=== PATIENT | female | born 1960 | race Caucasian/White ===

== ENCOUNTER → 2017-06-22 | Outpatient (CLI) | payer OTHER ==
[2017-06-22 15:56] LABS: ARTERIAL BLOOD BASE EXCESS 2.3 mmol/L
== END ==
LOC: OD 15:06
PROVIDERS: ATTEND Internal Medicine Pulmonary Disease
DX: E66.2 Morbid (severe) obesity with alveolar hypoventilation (principal); R06.00 Dyspnea, unspecified
CPT/HCPCS: 36600; 82803

== ENCOUNTER 2017-06-27 16:42 | Inpatient (IN) | payer OTHER ==
[2017-06-27] MEDS ORDERED: ASPIRIN 81 MG TABLET, CHEWABLE PO ONE (17:20)
--- NOTE | 2017-06-27 17:21 | ER Document Report ---
ED Medical Screen (RME) - General Chief Complaint: Chest Pain > 30 Stated Complaint: SHORTNESS OF BREATH Time Seen by Provider: 06/27/17 17:14 Mode of Arrival: Ambulatory Information source: Patient TRAVEL OUTSIDE OF THE [place] IN LAST 30 DAYS: No - HPI Patient complains to provider of: Chest pain, shortness of breath Onset: Last week Onset/Duration: Gradual, Persistent Quality of pain: Achy, Pressure Severity: Moderate Pain Level: 3 Associated Symptoms: Nausea, Shortness of breath Notes: 06/27/17 17:20 Patient is a 56-year-old female with a history of COPD from secondhand smoke exposure, who is oxygen dependent, presents to the emergency room today complaining of chest pain with shortness of breath that has been worsening over the past week, no fevers, nonproductive cough - Related Data Allergies/Adverse Reactions: No Known Allergies Allergy (Verified 06/27/17 16:59) Past Medical History - Past Medical History Cardiac Medical History: Reports: Hx Hypertension Denies: Hx Coronary Artery Disease, Hx Heart Attack Pulmonary Medical History: Denies: Hx Asthma, Hx Bronchitis, Hx COPD, Hx Pneumonia Neurological Medical History: Denies: Hx Cerebrovascular Accident, Hx Seizures Endocrine Medical History: Reports: Hx Diabetes Mellitus Type 2 Renal/ Medical History: Denies: Hx Peritoneal Dialysis GI Medical History: Reports: Hx Gastroesophageal Reflux Disease Musculoskeltal Medical History: Reports Hx Arthritis Psychiatric Medical History: Past Surgical History: Reports: Hx Abdominal Surgery - hernia repair, Hx Section, Hx Orthopedic Surgery. Denies: Hx Hysterectomy, Hx Pacemaker - Immunizations Immunizations up to date: Yes Hx Diphtheria, Pertussis, Tetanus Vaccination: Yes Physical Exam - Vital signs Vitals: Temp Pulse Resp BP Pulse Ox 98.9 F 91 16 131/84 H 94 06/27/17 16:55 06/27/17 16:55 06/27/17 16:55 06/27/17 16:55 06/27/17 16:55 Course - Vital Signs Vital signs: Temp Pulse Resp BP Pulse Ox 98.9 F 91 16 131/84 H 94 06/27/17 16:55 06/27/17 16:55 06/27/17 16:55 06/27/17 16:55 06/27/17 16:55
--- NOTE | 2017-06-27 17:55 | ER Document Report ---
ED General - General Mode of Arrival: Ambulatory Information source: Patient TRAVEL OUTSIDE OF THE [place] IN LAST 30 DAYS: No <MELY BOOTHE - Last Filed: 06/27/17 19:29> <BELINDA ISLAS - Last Filed: 06/28/17 00:40> - General Chief Complaint: Chest Pain > 30 Stated Complaint: SHORTNESS OF BREATH Time Seen by Provider: 06/27/17 17:14 Notes: Patient is a 56-year-old female presented emergency department for shortness of breath 1 week. Patient states that her shortness of breath worsened last night. Patient has chest pain when she tries to take a deep breath. Patient states that she normally has a productive cough in the morning with brown, green , and white sputum. Patient states that today her sputum was very dark in color compared to normal. Patient states her pain is located in her lungs and in between her shoulder blades. Patient denies any fever. Patient states that she also has some abdominal pain and since 06/18/2017 the patient has had some increased discomfort after eating. Patient has a history of COPD due to secondhand smoke exposure. Patient is O2 dependent and normally has an oxygen saturation of 96 or 97 on 2 L. Patient also has a history of pulmonary hypertension, GERD, and type [address] Lew as her PCP and Dr. Perez for pulmonology. (MELY BOOTHE) - Related Data Allergies/Adverse Reactions: No Known Allergies Allergy (Verified 06/27/17 16:59) Home Medications: Current Home Medications Albuterol Sulfate [Proair HFA] 2 inh IN Q6 PRN 06/27/17 [History] Amitriptyline HCl 2 tab PO QHS 06/27/17 [History] Cholecalciferol (Vitd3)/Vit K2 [D3 + K2 Dots 1,000 Units Tab] 1 tab PO DAILY 10/13 [History] Lisinopril/Hydrochlorothiazide [Lisinopril-Hctz 20-12.5 mg Tab] 1 tab PO DAILY 06/27/17 [History] Pioglitazone HCl 30 mg PO DAILY 06/27/17 [History] Past Medical History - General Information source: Patient - Social History Smoking Status: Never Smoker Cigarette use (# per day): No Chew tobacco use (# tins/day): No Smoking Education Provided: No Frequency of alcohol use: None Drug Abuse: None Family History: Hypertension Patient has suicidal ideation: No Patient has homicidal ideation: No - Past Medical History Cardiac Medical History: Reports: Hx Hypertension Pulmonary Medical History: Reports: Hx COPD - Secondhand smoke exposure, Other - O2 dependent Endocrine Medical History: Reports: Hx Diabetes Mellitus Type 2 GI Medical History: Reports: Hx Gastroesophageal Reflux Disease Musculoskeltal Medical History: Reports Hx Arthritis Psychiatric Medical History: Past Surgical History: Reports: Hx Abdominal Surgery - hernia repair, Hx Section, Hx Cholecystectomy, Hx Orthopedic Surgery - Immunizations Immunizations up to date: Yes Hx Diphtheria, Pertussis, Tetanus Vaccination: Yes <MELY BOOTHE - Last Filed: 06/27/17 19:29> - Social History Lives with: Family EENT Medical History: Reports: None Endocrine Medical History: Reports: Hx Diabetes Mellitus Type 2 - Levemir and Humalog and pioglitazone and metformin Renal/ Medical History: Reports: None Psychiatric Medical History: Reports: None Past Surgical History: Reports: Hx Cholecystectomy - April 2013 <BELINDA ISLAS - Last Filed: 06/28/17 00:40> Review of Systems - Review of Systems Constitutional: No symptoms reported EENT: No symptoms reported Cardiovascular: See HPI, Chest pain Respiratory: See HPI, Cough, Short of breath, Sputum Gastrointestinal: No symptoms reported Genitourinary: No symptoms reported Female Genitourinary: No symptoms reported Musculoskeletal: No symptoms reported Skin: No symptoms reported Hematologic/Lymphatic: No symptoms reported Neurological/Psychological: No symptoms reported -: Yes All other systems reviewed and negative <MELY BOOTHE - Last Filed: 06/27/17 19:29> Physical Exam - Vital signs Interpretation: Normal <MELY BOOTHE - Last Filed: 06/27/17 19:29> <BELINDA ISLAS - Last Filed: 06/28/17 00:40> - Vital signs Vitals: Temp Pulse Resp BP Pulse Ox 98.9 F 91 16 131/84 H 94 06/27/17 16:55 06/27/17 16:55 06/27/17 16:55 06/27/17 16:55 06/27/17 16:55 - Notes Notes: GENERAL: Alert, interacts well. Mild distress. HEAD: Normocephalic, atraumatic. EYES: Appear normal. Pupils equal, round, and reactive to light. ENT: Moist mucus membranes, tongue midline. NECK: Full range of motion. Supple. Trachea midline. LUNGS: Clear to auscultation bilaterally while listening anteriorly, no wheezes , rales, or rhonchi. 98% oxygen saturation on 2 L nasal cannula which is patient 's baseline. No respiratory distress. HEART: Regular rate and rhythm. No murmurs, gallops, or rubs. ABDOMEN: Morbidly obese. Soft, tenderness to palpate the epigastric and right upper quadrant. Non-distended. Normal bowel sounds. EXTREMITIES: Moves all 4 extremities spontaneously. Normal strength. No peripheral edema. NEUROLOGICAL: Alert and oriented x3. Normal speech. No focal neurological deficits. GCS 15. PSYCH: Normal affect, normal mood. SKIN: Warm, dry, normal turgor. (MELY BOOTHE) Course - Laboratory Result Diagrams: 06/27/17 18:00 06/27/17 18:00 <MELY BOOTHE - Last Filed: 06/27/17 19:29> - Laboratory Result Diagrams: 06/27/17 18:00 06/27/17 18:00 - Diagnostic Test Radiology reviewed: Image reviewed, Reports reviewed - Patient is status post cholecystectomy. The pancreas was not well visualized due to patient's obesity. IV contrast CT scan shows mild inflammatory changes in the pancreas, no masses no fluid collections. There is no ductal dilatation. There is fatty liver. There is periportal adenopathy. There is a left adnexal mass which is been present and essentially unchanged since at least 2011. - EKG Interpretation by Me EKG shows normal: Sinus rhythm, Silva, Intervals, QRS Complexes, ST-T Waves Rate: Normal - 86 Rhythm: NSR - Consults Dr. Thapa Time consulted: 22:20 Consulted provider: other - Requests I get a CT scan of the abdomen to better evaluate the pancreas and try to exclude the possibility that this could be due to an old retained stone. Dr. Thapa was called again with the CT results at 0035 and is agreeable to admit the patient to a medical floor <BELINDA ISLAS - Last Filed: 06/28/17 00:40> - Vital Signs Vital signs: Temp Pulse Resp BP Pulse Ox 98.9 F 91 26 H 116/83 95 06/27/17 16:55 06/27/17 16:55 06/27/17 19:12 06/27/17 19:12 06/27/17 19:58 - Laboratory Laboratory results interpreted by me: 06/27/17 06/27/17 06/27/17 18:00 18:00 18:00 WBC 13.2 H RBC 5.34 H Hgb 16.5 H Absolute Neutrophils 8.9 H D-Dimer 0.93 H Sodium 136.8 L Glucose 240 H Total Bilirubin 1.4 H Direct Bilirubin 0.5 H Triglycerides Lipase 6039.8 H Urine Protein Urine Glucose (UA) Urine Urobilinogen 06/27/17 06/27/17 18:00 20:40 WBC RBC Hgb Absolute Neutrophils D-Dimer Sodium Glucose Total Bilirubin Direct Bilirubin Triglycerides 208 H Lipase Urine Protein 30 H Urine Glucose (UA) >=500 H Urine Urobilinogen 2.0 H Discharge <MELY BOOTHE - Last Filed: 06/27/17 19:29> - Discharge Unit Admitted: Medical Floor <BELINDA ISLAS - Last Filed: 06/28/17 00:40> - Discharge Clinical Impression: Morbid obesity, Adnexal mass Pancreatitis Qualifiers: Chronicity: acute Pancreatitis type: unspecified pancreatitis type Acute pancreatitis complication: unspecified Qualified Code(s): K85.90 - Acute pancreatitis without necrosis or infection, unspecified Type 2 diabetes mellitus Qualifiers: Diabetes mellitus complication status: without complication Diabetes mellitus halfway insulin use: with halfway use Qualified Code(s): E11.9 - Type 2 diabetes mellitus without complications; Z79.4 - alf (current) use of insulin; Z79.4 - alf (current) use of insulin; Z79.4 - oil heaterman (current ) use of insulin; Z79.4 - alf (current) use of insulin Condition: Stable Disposition: ADMITTED INPATIENT Referrals: MALIKA LEW MD [Primary Care Provider] - Follow up as needed Scribe Attestation: 06/27/17 20:47 I personally performed the services described in the documentation, reviewed and edited the documentation which was dictated to the scribe in my presence, and it accurately records my words and actions. (BELINDA ISLAS) Scribe Documentation - Scribe Written by Scribe:: Khai Adler, 06/27/2017 1820 acting as scribe for :: Vibha <MELY BOOTHE - Last Filed: 06/27/17 19:29>
--- NOTE | 2017-06-27 18:00 | RADIOLOGY REPORT (SQ) ---
EXAM DESCRIPTION: CHEST PA/LAT COMPLETED DATE/TIME: 06/27/2017 5:43 pm REASON FOR STUDY: cp COMPARISON: 04/29/2016 EXAM PARAMETERS: NUMBER OF VIEWS: two views TECHNIQUE: Digital Frontal and Lateral radiographic views of the chest acquired. RADIATION DOSE: NA LIMITATIONS: none FINDINGS: LUNGS AND PLEURA: No acute opacities, masses or pneumothorax. No pleural effusion. MEDIASTINUM AND HILAR STRUCTURES: Stable. HEART AND VASCULAR STRUCTURES: Stable. BONES: No acute findings. HARDWARE: None in the chest. OTHER: No other significant finding. IMPRESSION: No acute findings. TECHNICAL DOCUMENTATION: JOB ID: [id number] [employer]- All Rights Reserved
[2017-06-27 18:21] LABS: ABSOLUTE BASOPHILS # (AUTO) 0.1 10^3/uL (0.0-0.2); ABSOLUTE EOSINOPHILS # (AUTO) 0.2 10^3/uL (0.0-0.6); ABSOLUTE LYMPHOCYTES (AUTO) 3.1 10^3/uL (0.5-4.7); ABSOLUTE MONOCYTES (AUTO) 0.9 10^3/uL (0.1-1.4); ABSOLUTE NEUT (AUTO) 8.9 10^3/uL (1.7-8.2); BASOPHILS % (AUTO) 0.9 % (0-2); EOSINOPHILS % (AUTO) 1.6 % (0-6); HEMATOCRIT 46.5 % (36.0-47.0); HEMOGLOBIN 16.5 g/dL (12.0-15.5); LYMPHOCYTES % (AUTO) 23.8 % (13-45); MEAN CORPUSCULAR HEMOGLOBIN 30.8 pg (27.0-33.4); MEAN CORPUSCULAR HGB CONC 35.4 g/dL (32.0-36.0); MEAN CORPUSCULAR VOLUME 87 fl (80-97); MONOCYTES % (AUTO) 6.6 % (3-13); RED BLOOD COUNT 5.34 10^6/uL (3.72-5.28); RED CELL DISTRIBUTION WIDTH 13.7 % (11.5-14.0); SEGMENTED NEUTROPHILS % (AUTO) 67.1 % (42-78); WHITE BLOOD COUNT 13.2 10^3/uL (4.0-10.5)
[2017-06-27 18:44] LABS: BLOOD UREA NITROGEN 15 mg/dL (7-20); CALCIUM 9.6 mg/dL (8.4-10.2); CREATININE RESULT 0.69 mg/dL (0.52-1.25); GLUCOSE 240 mg/dL (75-110)
[2017-06-27 18:45] LABS: ALANINE AMINOTRANSFERASE 24 U/L (9-52); ALKALINE PHOSPHATASE 105 U/L (38-126); ANION GAP 8 (5-19); ASPARTATE AMINO TRANSFERASE 16 U/L (14-36); BILIRUBIN,DIRECT 0.5 mg/dL (0.0-0.4); BILIRUBIN,TOTAL 1.4 mg/dL (0.2-1.3); CARBON DIOXIDE 30 mmol/L (22-30); CHLORIDE 99 mmol/L (98-107); CREATINE KINASE 36 U/L (30-135); POTASSIUM 4.6 mmol/L (3.6-5.0); SODIUM 136.8 mmol/L (137-145); TOTAL PROTEIN 7.2 g/dL (6.3-8.2)
[2017-06-27 18:49] LABS: CREATINE KINASE MB 1.08 ng/mL (<4.55)
[2017-06-27 18:54] LABS: TROPONIN I < 0.012 ng/mL
[2017-06-27 19:15] LABS: LIPASE 6039.8 U/L (23-300)
--- NOTE | 2017-06-27 20:28 | RADIOLOGY REPORT (SQ) ---
EXAM DESCRIPTION: U/S ABDOMEN LIMITED W/O DOP COMPLETED DATE/TIME: 06/27/2017 8:17 pm REASON FOR STUDY: pancreratitis COMPARISON: None. TECHNIQUE: Dynamic and static grayscale images acquired of the right upper quadrant and recorded on PACS. Additional selected color Doppler and spectral images recorded. LIMITATIONS: Study limited due to acoustical interference from fat or from air in the bowel. FINDINGS: PANCREAS: Poorly seen secondary to acoustical interference from fat or from air in the bow el. LIVER: Increased coarse Echotexture consistent with fatty infiltration. LIVER VASCULATURE: Poorly seen secondary to acoustical interference from fat or from air in the bowel . GALLBLADDER: Surgically absent. ULTRASOUND-DETECTED OSUNA'S SIGN: Negative. INTRAHEPATIC DUCTS AND COMMON DUCT: CBD and intrahepatic ducts normal caliber. No filling defects. INFERIOR VENA CAVA: Normal flow. AORTA: Poorly seen secondary to acoustical interference from fat or from air in the bowel. RIGHT KIDNEY: Poorly seen secondary to acoustical interference from fat or from air in the bowel. PERITONEAL CAVITY AND RIGHT PLEURAL SPACE: No ascites or effusions. OTHER: No other significant finding. IMPRESSION: Fatty liver. Otherwise Study limited due to acoustical interference from fat or from ai r in the bowel. TECHNICAL DOCUMENTATION: JOB ID: [id number] [employer]- All Rights Reserved
[2017-06-27 20:50] LABS: ADD ON TESTING BLD IN LAB ACKNOWLEDGE
[2017-06-27 20:55] LABS: APPEARANCE,URINE CLEAR; BILIRUBIN,URINE NEGATIVE (NEGATIVE); GLUCOSE, URINE >=500 mg/dL (NEGATIVE); KETONES,URINE NEGATIVE (NEGATIVE); LEUKOCYTE ESTERASE,URINE NEGATIVE (NEGATIVE); NITRITE,URINE NEGATIVE (NEGATIVE); PROTEIN,URINE 30 mg/dL (NEGATIVE)
[2017-06-27 21:05] LABS: BACTERIA,URINE 1+ /HPF
[2017-06-27 21:10] LABS: CHOLESTEROL 167.64 mg/dL (0-200); TRIGLYCERIDES 208 mg/dL (<150)
--- NOTE | 2017-06-27 21:15 | EKG REPORT ---
SEVERITY:- NORMAL ECG - SINUS RHYTHM : Confirmed by: Shabbir Woodruff 27-Jun-2017 21:15:17
[2017-06-28] MEDS ORDERED: IPRATROPIUM/ALBUTEROL 0.5-2.5 MG/3 ML AMPUL NEB PRN (00:37)
[2017-06-28] MEDS ORDERED: ACETAMINOPHEN 325 MG TABLET PO PRN ×2 (00:37→14:00)
[2017-06-28] MEDS ORDERED: GLUCAGON,HUMAN RECOMB 1 MG INJ IM PRN (00:37)
[2017-06-28] MEDS ORDERED: ONDANSETRON HCL INJ/PF 4 MG/2 ML SDV IV PRN ×2 (00:37→14:00)
[2017-06-28] MEDS ORDERED: DEXTROSE 40% GEL 15 GM TUBE PO PRN ×2 (00:37)
[2017-06-28] MEDS ORDERED: DEXTROSE 50%-WATER 25 GM/50 ML DISP.SYRIN IV PRN ×2 (00:37)
--- NOTE | 2017-06-28 00:48 | RADIOLOGY REPORT (SQ) ---
EXAM DESCRIPTION: CT ABD/PELVIS WITH IV ONLY COMPLETED DATE/TIME: 06/28/2017 12:21 am REASON FOR STUDY: acute pancreatitis, Cholecystectomy in 2012 . Diffuse abdominal pain. COMPARISON: CT abdomen and pelvis 08/05/2012, pelvic ultrasound 09/05/2012, right upper quadrant ultr asound 06/27/2017. TECHNIQUE: CT scan of the abdomen and pelvis performed using helical scanning technique with dynamic intravenous contrast injection. No oral contrast. Images reviewed with lung, soft tissue, and bone windows. Reconstructed coronal and sagittal MPR images reviewed. Delayed images for evaluation of the urinary system also acquired. All images stored on PACS. All CT scanners at this facility use dose modulation, iterative reconstruction, and/or weight based d osing when appropriate to reduce radiation dose to as low as reasonably achievable (ALARA). [facility]: Dose Right [facility]: CareDose [facility]: Dose Right [facility]: Teradose 4D [facility]: [employer] CONTRAST TYPE AND DOSE: contrast/concentration: Isovue 370.00 mg/ml; Total Contrast Delivered: 100.0 ml; Total Saline Delivered: 30.8 ml RENAL FUNCTION: Creatinine 0.69. RADIATION DOSE: Up-to-date CT equipment and radiation dose reduction techniques were employed. CTDIv ol: 21.1 mGy. DLP: 2326 mGy-cm.. LIMITATIONS: Artifact from patient's body habitus. FINDINGS: LOWER CHEST: No consolidation or pleural effusion. LIVER: The liver is enlarged measuring 22.3 cm in craniocaudal dimension. There is diffuse decreased attenuation, most consistent with fatty infiltration. Periportal adenopathy with lymph nodes measur ing 15 mm up to in short axis SPLEEN: The spleen is enlarged measuring 16.7 cm. PANCREAS: Diffuse peripancreatic edema, most consistent with acute pancreatitis. No peripancreatic f luid collection identified at this time. Pancreatic duct not dilated. GALLBLADDER: Surgically absent. No biliary ductal dilation is identified. ADRENAL GLANDS: No significant masses or asymmetry. RIGHT KIDNEY AND URETER: No significant calcifications. No hydronephrosis or hydroureter. LEFT KIDNEY AND URETER: No significant calcifications. No hydronephrosis or hydroureter. AORTA AND VESSELS: No abdominal aortic aneurysm. RETROPERITONEUM: No retroperitoneal hemorrhage or masses. BOWEL AND PERITONEAL CAVITY: No dilated bowel loops or inflammatory changes. No free fluid or free ai r. APPENDIX: Not visualized. PELVIS: The urinary bladder is decompressed. The uterus is present. Left adnexal mass measuring darlene roximately 9.2 x 4.2 cm, previously measured 7.6 x 3.9 cm. ABDOMINAL WALL: Postsurgical changes are seen in the anterior lower abdominal wall. BONES: Multilevel degenerative changes in the spine. IMPRESSION: Acute pancreatitis. Hepatosplenomegaly. Fatty infiltration of the liver. Periportal adenopathy. Interval increase in the left adnexal mass, worrisome for ovarian neoplasm. MRI pelvis may help in f urther characterization. RN [facility] consultation recommended. TECHNICAL DOCUMENTATION: JOB ID: [id number] MS-64 Quality ID # [id number]: Final reports with documentation of one or more dose reduction techniques (e.g., Au tomated exposure control, adjustment of the mA and/or kV according to patient size, use of iterative reconstruction technique) 2010 [employer]- All Rights Reserved
[2017-06-28] MEDS ORDERED: INFLUENZA ADLT QUAD (36MOS+) 2017-18 VAC 0.5 ML SYR IM PRN (03:28)
[2017-06-28] MEDS: NORMAL SALINE 1000 ML 1,000 ML IV SCH ×2 (04:31→04:50)
[2017-06-28 04:32] LABS: ABSOLUTE BASOPHILS # (AUTO) 0.1 10^3/uL (0.0-0.2); ABSOLUTE EOSINOPHILS # (AUTO) 0.2 10^3/uL (0.0-0.6); ABSOLUTE LYMPHOCYTES (AUTO) 3.5 10^3/uL (0.5-4.7); ABSOLUTE MONOCYTES (AUTO) 0.8 10^3/uL (0.1-1.4); ABSOLUTE NEUT (AUTO) 8.5 10^3/uL (1.7-8.2); BASOPHILS % (AUTO) 0.8 % (0-2); EOSINOPHILS % (AUTO) 1.3 % (0-6); HEMATOCRIT 42.9 % (36.0-47.0); HEMOGLOBIN 15.1 g/dL (12.0-15.5); HGB HCT DIFFERENCE 2.4; MEAN CORPUSCULAR HEMOGLOBIN 30.6 pg (27.0-33.4); MEAN CORPUSCULAR HGB CONC 35.3 g/dL (32.0-36.0); MEAN CORPUSCULAR VOLUME 87 fl (80-97); MONOCYTES % (AUTO) 6.3 % (3-13); RED BLOOD COUNT 4.95 10^6/uL (3.72-5.28); RED CELL DISTRIBUTION WIDTH 13.6 % (11.5-14.0); SEGMENTED NEUTROPHILS % (AUTO) 64.6 % (42-78); WHITE BLOOD COUNT 13.1 10^3/uL (4.0-10.5)
--- NOTE | 2017-06-28 04:52 | PDOC H&P ---
History of Present Illness Admission Date/PCP: 06/28/17 00:37 MALIKA LEW MD Patient complains of: Epigastric and back pain History of Present Illness: ARMOND GRIJALVA is a 56 year old female with a past medical history of morbid obesity and diabetes who has had approximately 2 weeks of epigastric pain which radiates to the back and is dull in nature intermittent worsened by food and deep breathing. This is associated with loose stools and nausea without vomiting prompting evaluation emergency room where she is found to have acute pancreatitis and referred to the hospitalist for admission. Patient denies previous episode, alcohol, new medications or recent viral prodrome. Past Medical History Cardiac Medical History: Reports: Hypertension Denies: Coronary Artery Disease, Myocardial Infarction Pulmonary Medical History: Reports: Chronic Obstructive Pulmonary Disease (COPD ) - Secondhand smoke exposure, Other - O2 dependent Denies: Asthma, Bronchitis, Pneumonia EENT Medical History: Reports: None Neurological Medical History: Denies: Seizures Endocrine Medical History: Reports: Diabetes Mellitus Type 2 - Levemir and Humalog and pioglitazone and metformin Renal/ Medical History: Reports: None GI Medical History: Reports: Gastroesophageal Reflux Disease Musculoskeltal Medical History: Reports: Arthritis Psychiatric Medical History: Reports: None Hematology: Denies: Anemia Past Surgical History Past Surgical History: Reports: Section, Cholecystectomy - April 2013 , Orthopedic Surgery Denies: Hysterectomy, Pacemaker Social History Information Source: Patient Lives with: Family Smoking Status: Never Smoker Frequency of Alcohol Use: None Hx Recreational Drug Use: No Drugs: None Hx Prescription Drug Abuse: No - Advance Directive Resuscitation Status: Full Code Family History Family History: Hypertension Parental Family History Reviewed: Yes Children Family History Reviewed: Yes Sibling(s) Family History Reviewed.: Yes Medication/Allergy Home Medications: Insulin Detemir [Levemir] 80 unit SQ QHS 09/09/11 Oxycodone HCl/Acetaminophen [Percocet 5-325 mg Tablet] 1 - 2 tab PO QHS Insulin Lispro [Humalog Insulin (Lispro) 100 unit/mL] 20 unit SUBCUT AC Metformin HCl [Glumetza] 1,000 mg PO BID 04/28/13 Albuterol Sulfate [Proair HFA] 2 inh IN Q6 PRN 06/27/17 Amitriptyline HCl 2 tab PO QHS 06/27/17 Cholecalciferol (Vitd3)/Vit K2 [D3 + K2 Dots 1,000 Units Tab] 1 tab PO DAILY 10/13 Lisinopril/Hydrochlorothiazide [Lisinopril-Hctz 20-12.5 mg Tab] 1 tab PO DAILY 06/27/17 Pioglitazone HCl 30 mg PO DAILY 06/27/17 Allergies/Adverse Reactions: No Known Allergies Allergy (Verified 06/27/17 16:59) Review of Systems Constitutional: PRESENT: as per HPI Eyes: ABSENT: visual disturbances Ears: ABSENT: hearing changes Cardiovascular: ABSENT: chest pain, dyspnea on exertion, edema, orthropnea, palpitations Respiratory: ABSENT: cough, hemoptysis Gastrointestinal: PRESENT: abdominal pain, bloating, diarrhea, nausea. ABSENT: coffee ground emesis, constipation, melena Genitourinary: ABSENT: dysuria, hematuria Musculoskeletal: ABSENT: joint swelling Integumentary: ABSENT: rash, wounds Neurological: ABSENT: abnormal gait, abnormal speech, confusion, dizziness, focal weakness, syncope Psychiatric: ABSENT: anxiety, depression, homidical ideation, suicidal ideation Endocrine: ABSENT: cold intolerance, heat intolerance, polydipsia, polyuria Hematologic/Lymphatic: ABSENT: easy bleeding, easy bruising Physical Exam Vital Signs: Temp Pulse Resp BP Pulse Ox 98.4 F 87 20 133/79 H 97 06/28/17 03:01 06/28/17 03:01 06/28/17 03:01 06/28/17 03:01 06/28/17 03:01 Intake & Output 06/26/17 06/27/17 06/28/17 11:59 11:59 11:59 Weight 160.5 kg General appearance: PRESENT: cooperative, mild distress, morbidly obese, obese Head exam: PRESENT: atraumatic, normocephalic Eye exam: PRESENT: conjunctiva pink, EOMI, PERRLA. ABSENT: scleral icterus Ear exam: PRESENT: normal external ear exam Mouth exam: PRESENT: moist, tongue midline Neck exam: ABSENT: carotid bruit, JVD, lymphadenopathy, thyromegaly Respiratory exam: PRESENT: clear to auscultation skyler. ABSENT: rales, rhonchi, wheezes Cardiovascular exam: PRESENT: RRR. ABSENT: diastolic murmur, rubs, systolic murmur Pulses: PRESENT: normal dorsalis pedis pul Vascular exam: PRESENT: normal capillary refill GI/Abdominal exam: PRESENT: distended, hyperactive bowel sounds, soft, tenderness. ABSENT: firm, guarding, hernia, Parsons's sign, normal bowel sounds Rectal exam: PRESENT: deferred Extremities exam: PRESENT: full ROM. ABSENT: calf tenderness, clubbing, pedal edema Neurological exam: PRESENT: alert, awake, oriented to person, oriented to place , oriented to time, oriented to situation, CN II-XII grossly intact. ABSENT: motor sensory deficit Psychiatric exam: PRESENT: appropriate affect, normal mood. ABSENT: homicidal ideation, suicidal ideation Skin exam: PRESENT: dry, intact, warm. ABSENT: cyanosis, rash Results Laboratory Results: 06/28/17 04:11 06/28/17 04:11 WBC 13.1 H RBC 4.95 Hgb 15.1 Hct 42.9 MCV 87 MCH 30.6 MCHC 35.3 RDW 13.6 Plt Count 216 Seg Neutrophils % 64.6 Lymphocytes % 27.0 Monocytes % 6.3 Eosinophils % 1.3 Basophils % 0.8 Absolute Neutrophils 8.5 H Absolute Lymphocytes 3.5 Absolute Monocytes 0.8 Absolute Eosinophils 0.2 Absolute Basophils 0.1 Impressions: Chest X-Ray 06/27/17 17:20 IMPRESSION: No acute findings. Abdomen Ultrasound 06/27/17 19:26 IMPRESSION: Fatty liver. Otherwise Study limited due to acoustical interference from fat or from air in the bowel. Abdomen/Pelvis CT 06/27/17 22:46 IMPRESSION: Acute pancreatitis. Hepatosplenomegaly. Fatty infiltration of the liver. Periportal adenopathy. Interval increase in the left adnexal mass, worrisome for ovarian neoplasm. MRI pelvis may help in further characterization. SYSTEM SPECIALIST consultation recommended. Assessment & Plan - Diagnosis (1) Pancreatitis Qualifiers: Chronicity: acute Pancreatitis type: unspecified pancreatitis type Acute pancreatitis complication: unspecified Qualified Code(s): K85.90 - Acute pancreatitis without necrosis or infection, unspecified Is this a current diagnosis for this admission?: Yes Plan: Medical floor admission with hydration, bowel rest and symptomatic management. Reevaluation of chemistry and consideration of ERCP and GI consultation. (2) Adnexal mass Is this a current diagnosis for this admission?: Yes Plan: SYSTEM SPECIALIST consult concern for ovarian malignancy (3) Morbid obesity Is this a current diagnosis for this admission?: Yes Plan: Consider dietitian consult (4) Type 2 diabetes mellitus Qualifiers: Diabetes mellitus complication status: without complication Diabetes mellitus termite control servicer insulin use: with penitentiary use Qualified Code(s): E11.9 - Type 2 diabetes mellitus without complications; Z79.4 - custodial (current) use of insulin; Z79.4 - custodial (current) use of insulin; Z79.4 - termite control servicer ( current) use of insulin; Z79.4 - custodial (current) use of insulin Is this a current diagnosis for this admission?: Yes Plan: Hold metformin sliding scale as needed - Time Time Spent: 30 to 50 Minutes - Inpatient Certification Medical Necessity: Need Close Monitoring Due to Risk of Patient Decompensation
[2017-06-28 04:56] LABS: ALANINE AMINOTRANSFERASE 33 U/L (9-52); ALBUMIN 3.6 g/dL (3.5-5.0); ALKALINE PHOSPHATASE 94 U/L (38-126); ANION GAP 10 (5-19); ASPARTATE AMINO TRANSFERASE 15 U/L (14-36); BILIRUBIN,DIRECT 0.4 mg/dL (0.0-0.4); BILIRUBIN,TOTAL 1.6 mg/dL (0.2-1.3); BLOOD UREA NITROGEN 18 mg/dL (7-20); CALCIUM 9.5 mg/dL (8.4-10.2); CARBON DIOXIDE 28 mmol/L (22-30); CHLORIDE 98 mmol/L (98-107); GLUCOSE 211 mg/dL (75-110); POTASSIUM 4.3 mmol/L (3.6-5.0); SODIUM 135.6 mmol/L (137-145); TOTAL PROTEIN 6.3 g/dL (6.3-8.2)
[2017-06-28] MEDS: HEPARIN SOD (PORCINE) 5,000 UNIT/ML 1 ML SYRINGE SUBCUT SCH ×3 (06:05→21:46)
[2017-06-28] MEDS: INSULIN LISPRO 100 UNIT/ML 3 ML VIAL SUBCUT PRN ×4 (06:10→23:26)
--- NOTE | 2017-06-28 10:44 | PDOC CONSULTATION ---
Consultation Consult Date: 06/28/17 Consult reason:: Pelvic Mass History of Present Illness Admission Date/PCP: 06/28/17 00:37 MALIKA LEW MD Patient complains of: Pt is admitted to the hospital for pancreatitis. Had ovarian mass on CT of Pelvis History of Present Illness: Pt reports no electric refrigerator servicer complaints Past Medical History LMP: 3 years ago Gynecological Infection: No Cardiac Medical History: Reports: Hypertension Denies: Coronary Artery Disease, Myocardial Infarction Pulmonary Medical History: Reports: Chronic Obstructive Pulmonary Disease (COPD ) - Secondhand smoke exposure, Other - O2 dependent Denies: Asthma, Bronchitis, Pneumonia EENT Medical History: Reports: None Neurological Medical History: Denies: Seizures Endocrine Medical History: Reports: Diabetes Mellitus Type 2 - Levemir and Humalog and pioglitazone and metformin Renal/ Medical History: Reports: None GI Medical History: Reports: Gastroesophageal Reflux Disease Musculoskeltal Medical History: Reports: Arthritis Psychiatric Medical History: Reports: None Social History Lives with: Family Smoking Status: Never Smoker Frequency of Alcohol Use: None Hx Recreational Drug Use: No Drugs: None Hx Prescription Drug Abuse: No - Advance Directive Resuscitation Status: Full Code Family History Family History: Hypertension Parental Family History Reviewed: Yes Children Family History Reviewed: Yes Sibling(s) Family History Reviewed.: Yes Medication/Allergy Home Medications: Insulin Detemir [Levemir] 80 unit SQ QHS 09/09/11 Oxycodone HCl/Acetaminophen [Percocet 5-325 mg Tablet] 1 tab PO QHS 07/05/12 Insulin Lispro [Humalog Insulin (Lispro) 100 unit/mL] 20 unit SQ AC 04/28/13 Metformin HCl [Glumetza] 1,000 mg PO Q12 04/28/13 Amitriptyline HCl 2 tab PO QHS 06/27/17 Cholecalciferol (Vitd3)/Vit K2 [D3 + K2 Dots 1,000 Units Tab] 1 tab PO DAILY 10/13 Lisinopril/Hydrochlorothiazide [Lisinopril-Hctz 20-12.5 mg Tab] 1 tab PO DAILY 06/27/17 Aspirin [Aspirin EC] 81 mg PO DAILY 06/28/17 Budesonide/Formoterol Fumarate [Symbicort 160-4.5 Mcg Inhaler] 2 puff IN Q12 11/13 Timolol [Betimol] 1 drop OU Q12 06/28/17 Allergies/Adverse Reactions: No Known Allergies Allergy (Verified 06/27/17 16:59) Review of Systems All systems: reviewed and no additional remarkable complaints except as stated Physical Exam - Physical Exam Vital Signs: Temp Pulse Resp BP Pulse Ox 97.8 F 88 18 134/67 H 100 06/28/17 08:08 06/28/17 08:39 06/28/17 08:39 06/28/17 08:08 06/28/17 08:39 Intake & Output 06/27/17 06/28/17 06/29/17 06:59 06:59 06:59 Intake Total 100 Balance 100 Weight 160.5 kg General appearance: PRESENT: no acute distress, cooperative, well-developed Head exam: PRESENT: atraumatic, normocephalic Eye exam: PRESENT: conjunctiva pink, PERRLA Ear exam: PRESENT: normal external ear exam Mouth exam: PRESENT: moist Respiratory exam: PRESENT: clear to auscultation skyler, unlabored Cardiovascular exam: PRESENT: RRR GI/Abdominal exam: PRESENT: normal bowel sounds, soft Rectal exam: PRESENT: deferred Neurological exam: PRESENT: alert, awake Psychiatric exam: PRESENT: normal mood Skin exam: PRESENT: normal color Result Laboratory Results: 06/28/17 04:11 06/28/17 04:11 06/28/17 06/28/17 04:11 04:11 WBC 13.1 H RBC 4.95 Hgb 15.1 Hct 42.9 MCV 87 MCH 30.6 MCHC 35.3 RDW 13.6 Plt Count 216 Seg Neutrophils % 64.6 Lymphocytes % 27.0 Monocytes % 6.3 Eosinophils % 1.3 Basophils % 0.8 Absolute Neutrophils 8.5 H Absolute Lymphocytes 3.5 Absolute Monocytes 0.8 Absolute Eosinophils 0.2 Absolute Basophils 0.1 Sodium 135.6 L Potassium 4.3 Chloride 98 Carbon Dioxide 28 Anion Gap 10 BUN 18 Creatinine 0.80 Est GFR ( Amer) > 60 Est GFR (Non-Af Amer) > 60 Glucose 211 H Calcium 9.5 Total Bilirubin 1.6 H AST 15 ALT 33 Alkaline Phosphatase 94 Total Protein 6.3 Albumin 3.6 Impressions: Chest X-Ray 06/27/17 17:20 IMPRESSION: No acute findings. Abdomen Ultrasound 06/27/17 19:26 IMPRESSION: Fatty liver. Otherwise Study limited due to acoustical interference from fat or from air in the bowel. Abdomen/Pelvis CT 06/27/17 22:46 IMPRESSION: Acute pancreatitis. Hepatosplenomegaly. Fatty infiltration of the liver. Periportal adenopathy. Interval increase in the left adnexal mass, worrisome for ovarian neoplasm. MRI pelvis may help in further characterization. DIRECTORY CARRIER consultation recommended. Assessment & Plan - Diagnosis (1) Adnexal mass Is this a current diagnosis for this admission?: Yes (2) Morbid obesity Is this a current diagnosis for this admission?: Yes (3) Pancreatitis Qualifiers: Chronicity: acute Pancreatitis type: unspecified pancreatitis type Acute pancreatitis complication: unspecified Qualified Code(s): K85.90 - Acute pancreatitis without necrosis or infection, unspecified Is this a current diagnosis for this admission?: Yes (4) Type 2 diabetes mellitus Qualifiers: Diabetes mellitus complication status: without complication Diabetes mellitus terminal supervisor insulin use: with long-term use Qualified Code(s): E11.9 - Type 2 diabetes mellitus without complications; Z79.4 - terminal clerk (current) use of insulin; Z79.4 - terminal clerk (current) use of insulin; Z79.4 - snf ( current) use of insulin; Z79.4 - terminal clerk (current) use of insulin Is this a current diagnosis for this admission?: Yes - Time Time Spent: 30 to 50 Minutes Critical Time spent with patient: Less than 15 minutes Medications reviewed and adjusted accordingly: Yes Anticipated discharge: Other Within: Other - Will order Pelvic Ultrasound and Ovarian Cancer Markers Will need fu/ with [facility] and GynOnc
--- NOTE | 2017-06-28 12:09 | Physician Advisory Note ---
Physician Advisor ProgressNote .: [facility] I have reviewed the medical record for this patient. Physician Advisor Statement: Please consider documentin. "Acute hyponatremia, suspect due to ____" [intravascular volume depletion? ] 2. "Chronic hypoxemic respiratory failure, requiring 2-4L O2 at baseline" {2L sedentary, 4L w/activity} 3. Medical necessity / status (see below) - please document what clinical issues concern you -("I AM CONCERNED about ...") Status: 56yo [employer] pt w/HTN, COPD, chr O2 dependence/resp failure, in w/acute pancreatitis of unclear cause. Reasonable to come in as Obs to start. After 1 night of 2L IVF over 10 hrs, prns, & close monitoring, pt continues to have persistent leukocytosis without change, worsening acute hyponatremia, worsening total Bilirubin, with BP as low as 95/50 this AM, recurrent tachypnea as high as 28. Attending has now ordered prn ice chips po, no further po intake. Clearly, pt is not yet clinically stable for d/c & is appropriate to change to Inpatient status. Thanks! CK
--- NOTE | 2017-06-28 13:10 | PDOC PROGRESS REPORT ---
Subjective Progress Note for:: 06/28/17 Subjective:: The patient was admitted for acute epigastric pain. She is currently diagnosed with pancreatitis. The patient was hydrated with IV fluids overnight but continues to have borderline blood pressures. Her labs are slightly worse today. She continues to have epigastric pain despite n.p.o. status. The patient is not stable for discharge at this time. [facility] has been consulted secondary to an ovarian mass. They have recommended a pelvic ultrasound and they are sending serum tumor markers. The patient will need to follow-up with her [facility] after discharge. Please see their consultation for recommendations. Physical Exam Vital Signs: Temp Pulse Resp BP Pulse Ox 98.0 F 106 H 16 135/78 H 100 06/28/17 12:35 06/28/17 12:35 06/28/17 12:35 06/28/17 12:35 06/28/17 12:35 Intake & Output 06/27/17 06/28/17 06/29/17 06:59 06:59 06:59 Intake Total 100 Balance 100 Weight 160.5 kg Additional comments: The patient is a super morbidly obese white female. She is extremely pleasant. She appears to be mildly toxic. At this time is normal. She answers questions appropriately. Her lungs are diminished throughout but clear. Her cardiac exam demonstrates distant heart sounds but is regular without murmurs, gallops or rubs. The abdomen is obese but diffusely tender particularly in the epigastric region. I could not assess for hepatosplenomegaly due to the size of the abdomen. I did not notice any hernias or masses. The patient's lower extremities are obese with 1+ edema. The skin is warm dry and intact without lesions or rashes. Results Laboratory Results: 06/28/17 04:11 06/28/17 04:11 06/28/17 06/28/17 04:11 04:11 WBC 13.1 H RBC 4.95 Hgb 15.1 Hct 42.9 MCV 87 MCH 30.6 MCHC 35.3 RDW 13.6 Plt Count 216 Seg Neutrophils % 64.6 Lymphocytes % 27.0 Monocytes % 6.3 Eosinophils % 1.3 Basophils % 0.8 Absolute Neutrophils 8.5 H Absolute Lymphocytes 3.5 Absolute Monocytes 0.8 Absolute Eosinophils 0.2 Absolute Basophils 0.1 Sodium 135.6 L Potassium 4.3 Chloride 98 Carbon Dioxide 28 Anion Gap 10 BUN 18 Creatinine 0.80 Est GFR ( Amer) > 60 Est GFR (Non-Af Amer) > 60 Glucose 211 H Calcium 9.5 Total Bilirubin 1.6 H AST 15 ALT 33 Alkaline Phosphatase 94 Total Protein 6.3 Albumin 3.6 Impressions: Chest X-Ray 06/27/17 17:20 IMPRESSION: No acute findings. Abdomen Ultrasound 06/27/17 19:26 IMPRESSION: Fatty liver. Otherwise Study limited due to acoustical interference from fat or from air in the bowel. Abdomen/Pelvis CT 06/27/17 22:46 IMPRESSION: Acute pancreatitis. Hepatosplenomegaly. Fatty infiltration of the liver. Periportal adenopathy. Interval increase in the left adnexal mass, worrisome for ovarian neoplasm. MRI pelvis may help in further characterization. TORCH STRAIGHTENER consultation recommended. Assessment & Plan - Diagnosis (1) Leukocytosis Is this a current diagnosis for this admission?: Yes (2) Acute hyponatremia Is this a current diagnosis for this admission?: Yes (3) Hypotension Is this a current diagnosis for this admission?: Yes (4) Chronic hypoxemic respiratory failure Is this a current diagnosis for this admission?: Yes (5) Hyperbilirubinemia Is this a current diagnosis for this admission?: Yes (6) Adnexal mass Is this a current diagnosis for this admission?: Yes (7) Morbid obesity Is this a current diagnosis for this admission?: Yes (8) Pancreatitis Qualifiers: Chronicity: acute Pancreatitis type: unspecified pancreatitis type Acute pancreatitis complication: unspecified Qualified Code(s): K85.90 - Acute pancreatitis without necrosis or infection, unspecified Is this a current diagnosis for this admission?: Yes (9) Type 2 diabetes mellitus Qualifiers: Diabetes mellitus complication status: without complication Diabetes mellitus long-term insulin use: with extermination inspector use Qualified Code(s): E11.9 - Type 2 diabetes mellitus without complications; Z79.4 - continuous churn buttermaker (current) use of insulin; Z79.4 - continuous churn buttermaker (current) use of insulin; Z79.4 - senior living ( current) use of insulin; Z79.4 - continuous churn buttermaker (current) use of insulin Is this a current diagnosis for this admission?: Yes - Time Time Spent with patient: 15-24 minutes - Inpatient Certification Medical Necessity: Other - The patient was admitted overnight for IV fluid hydration. Despite 2 L of IV fluids the patient continues to have abnormal vital signs with a blood pressure as low as 95/50. In addition, she has tachypnea documented at 28 respirations per minute. The patient has persistent leukocytosis and worsening acute hyponatremia with worsening total bilirubin. At this point time the patient is not stable for discharge from the hospital and will be changed to inpatient status. - Plan Summary Plan Summary: The patient was admitted earlier this morning. This is a brief follow-up note. Essentially, the patient is admitted with pancreatitis with associated comorbidities to include acute hyponatremia. She will continue on IV fluids. She will continue on n.p.o. status. The patient has chronic hypoxic respiratory failure and is oxygen dependent. Her oxygen dependency is likely from COPD and her super morbid obesity. We will continue supplemental oxygen. The patient did inform me that she has had a sleep study and does not have sleep apnea. Therefore, she will not require CPAP or BiPAP at night. The patient's labs will need to be followed closely in regards to her leukocytosis, hyponatremia and hyperbilirubinemia. We will need to follow her calcium secondary to her acute pancreatitis. We will follow her leucocytosis and electrolytes. We will need to continue her basal insulin and cover with a sliding scale. I will hold pioglitazone.
--- NOTE | 2017-06-28 15:45 | RADIOLOGY REPORT (SQ) ---
EXAM DESCRIPTION: U/S NON-OB PELVIS LTD W/O DOP COMPLETED DATE/TIME: 06/28/2017 3:36 pm REASON FOR STUDY: fibroids COMPARISON: None. TECHNIQUE: Dynamic and static grayscale images acquired of the pelvis via transabdominal and transva ginal approach and recorded on PACS. Additional selected color Doppler and spectral images recorded. LIMITATIONS: Body habitus. FINDINGS: Uterus not well visualized. No adnexal masses. No free fluid. IMPRESSION: Limited study. No fibroids identified. TECHNICAL DOCUMENTATION: JOB ID: [id number] [employer]- All Rights Reserved
[2017-06-28] MEDS: AMITRIPTYLINE HCL 50 MG TABLET PO SCH (21:44)
[2017-06-28] MEDS: BUDESONIDE/FORMOTEROL 160-4.5 MCG 60 PUFF/6 GM MDI IH SCH (21:45)
[2017-06-28] MEDS: INSULIN DETEMIR 100 UNIT/ML 3 ML PEN SUBCUT SCH (21:46)
[2017-06-28] MEDS: TIMOLOL MALEATE 0.5% OPH SOLN 5 ML OU SCH (21:47)
[2017-06-28] MEDS ORDERED: (PENDING PHARMACY ID) (Timolol [Betimol] 1 DROP) OU SCH (22:00)
[2017-06-29] MEDS: 1/2 NORMAL SALINE 1,000 ML IV PRN ×2 (00:40→21:14)
[2017-06-29] MEDS: HEPARIN SOD (PORCINE) 5,000 UNIT/ML 1 ML SYRINGE SUBCUT SCH ×3 (05:57→21:14)
[2017-06-29] MEDS: INSULIN LISPRO 100 UNIT/ML 3 ML VIAL SUBCUT PRN ×3 (06:07→17:52)
[2017-06-29 06:09] LABS: ABSOLUTE BASOPHILS # (AUTO) 0.1 10^3/uL (0.0-0.2); ABSOLUTE EOSINOPHILS # (AUTO) 0.2 10^3/uL (0.0-0.6); ABSOLUTE LYMPHOCYTES (AUTO) 2.3 10^3/uL (0.5-4.7); ABSOLUTE MONOCYTES (AUTO) 0.7 10^3/uL (0.1-1.4); ABSOLUTE NEUT (AUTO) 7.8 10^3/uL (1.7-8.2); BASOPHILS % (AUTO) 0.6 % (0-2); EOSINOPHILS % (AUTO) 1.7 % (0-6); HEMATOCRIT 41.4 % (36.0-47.0); HEMOGLOBIN 14.4 g/dL (12.0-15.5); HGB HCT DIFFERENCE 1.8; LYMPHOCYTES % (AUTO) 20.9 % (13-45); MEAN CORPUSCULAR HEMOGLOBIN 30.3 pg (27.0-33.4); MEAN CORPUSCULAR HGB CONC 34.7 g/dL (32.0-36.0); MEAN CORPUSCULAR VOLUME 87 fl (80-97); MONOCYTES % (AUTO) 6.4 % (3-13); RED BLOOD COUNT 4.74 10^6/uL (3.72-5.28); RED CELL DISTRIBUTION WIDTH 13.5 % (11.5-14.0); SEGMENTED NEUTROPHILS % (AUTO) 70.4 % (42-78); WHITE BLOOD COUNT 11.1 10^3/uL (4.0-10.5)
[2017-06-29 06:19] LABS: ALANINE AMINOTRANSFERASE 31 U/L (9-52); ALBUMIN 3.5 g/dL (3.5-5.0); ALKALINE PHOSPHATASE 92 U/L (38-126); ANION GAP 9 (5-19); ASPARTATE AMINO TRANSFERASE 12 U/L (14-36); BILIRUBIN,DIRECT 0.5 mg/dL (0.0-0.4); BILIRUBIN,TOTAL 1.5 mg/dL (0.2-1.3); BLOOD UREA NITROGEN 11 mg/dL (7-20); CALCIUM 9.2 mg/dL (8.4-10.2); CARBON DIOXIDE 28 mmol/L (22-30); CHLORIDE 101 mmol/L (98-107); CREATININE RESULT 0.64 mg/dL (0.52-1.25); GLUCOSE 187 mg/dL (75-110); MAGNESIUM 1.7 mg/dL (1.6-2.3); POTASSIUM 4.4 mmol/L (3.6-5.0); SODIUM 138.3 mmol/L (137-145)
[2017-06-29] MEDS: BUDESONIDE/FORMOTEROL 160-4.5 MCG 60 PUFF/6 GM MDI IH SCH ×2 (09:13→21:14)
[2017-06-29] MEDS: ASPIRIN 81 MG TABLET, ENT COATED PO SCH (09:13)
[2017-06-29] MEDS: TIMOLOL MALEATE 0.5% OPH SOLN 5 ML OU SCH ×2 (09:13→21:14)
--- NOTE | 2017-06-29 09:40 | PDOC PROGRESS REPORT ---
Subjective Progress Note for:: 06/29/17 Subjective:: Patient states that her belly is feeling better. Patient denies any nausea or vomiting. Nursing reports that patient is still on ice chip diet. Patient is asking for diet to be advanced. Patient also wants to know when she will be able to go home. Nursing reports the patient was seen by MANAGER PHOTO. Physical Exam Vital Signs: Temp Pulse Resp BP Pulse Ox 97.5 F 80 16 125/74 94 06/29/17 07:39 06/29/17 08:10 06/29/17 08:10 06/29/17 07:39 06/29/17 08:10 Intake & Output 06/28/17 06/29/17 06/30/17 06:59 06:59 06:59 Intake Total 800 Output Total 1400 Balance -600 Weight 161 kg General appearance: PRESENT: no acute distress, well-developed, well-nourished, other - Morbidly obese Head exam: PRESENT: atraumatic, normocephalic Eye exam: PRESENT: conjunctiva pink, EOMI, PERRLA. ABSENT: scleral icterus Ear exam: PRESENT: normal external ear exam Mouth exam: PRESENT: moist, tongue midline Neck exam: ABSENT: carotid bruit, JVD, lymphadenopathy, thyromegaly Respiratory exam: PRESENT: clear to auscultation skyler, other - Diminished at bases secondary to habitus. ABSENT: rales, rhonchi, wheezes Cardiovascular exam: PRESENT: RRR. ABSENT: diastolic murmur, rubs, systolic murmur Pulses: PRESENT: normal dorsalis pedis pul Vascular exam: PRESENT: normal capillary refill GI/Abdominal exam: PRESENT: normal bowel sounds, soft, tenderness - Tenderness to palpation in the lower abdomen. ABSENT: distended, guarding, mass, organolmegaly, rebound Rectal exam: PRESENT: deferred Extremities exam: PRESENT: full ROM. ABSENT: calf tenderness, clubbing, pedal edema Neurological exam: PRESENT: alert, awake, oriented to person, oriented to place , oriented to time, oriented to situation, CN II-XII grossly intact. ABSENT: motor sensory deficit Psychiatric exam: PRESENT: appropriate affect, normal mood. ABSENT: homicidal ideation, suicidal ideation Skin exam: PRESENT: dry, intact, warm. ABSENT: cyanosis, rash Results Laboratory Results: 06/29/17 05:45 06/29/17 05:45 06/29/17 06/29/17 05:45 05:45 WBC 11.1 H RBC 4.74 Hgb 14.4 Hct 41.4 MCV 87 MCH 30.3 MCHC 34.7 RDW 13.5 Plt Count 195 Seg Neutrophils % 70.4 Lymphocytes % 20.9 Monocytes % 6.4 Eosinophils % 1.7 Basophils % 0.6 Absolute Neutrophils 7.8 Absolute Lymphocytes 2.3 Absolute Monocytes 0.7 Absolute Eosinophils 0.2 Absolute Basophils 0.1 Sodium 138.3 Potassium 4.4 Chloride 101 Carbon Dioxide 28 Anion Gap 9 BUN 11 Creatinine 0.64 Est GFR ( Amer) > 60 Est GFR (Non-Af Amer) > 60 Glucose 187 H Calcium 9.2 Magnesium 1.7 Total Bilirubin 1.5 H AST 12 L ALT 31 Alkaline Phosphatase 92 Total Protein 6.0 L Albumin 3.5 Impressions: Chest X-Ray 06/27/17 17:20 IMPRESSION: No acute findings. Abdomen Ultrasound 06/27/17 19:26 IMPRESSION: Fatty liver. Otherwise Study limited due to acoustical interference from fat or from air in the bowel. Abdomen/Pelvis CT 06/27/17 22:46 IMPRESSION: Acute pancreatitis. Hepatosplenomegaly. Fatty infiltration of the liver. Periportal adenopathy. Interval increase in the left adnexal mass, worrisome for ovarian neoplasm. MRI pelvis may help in further characterization. MANAGER PHOTO consultation recommended. Pelvis Ultrasound 06/28/17 00:00 IMPRESSION: Limited study. No fibroids identified. Assessment & Plan - Diagnosis (1) Pancreatitis Qualifiers: Chronicity: acute Pancreatitis type: unspecified pancreatitis type Acute pancreatitis complication: unspecified Qualified Code(s): K85.90 - Acute pancreatitis without necrosis or infection, unspecified Is this a current diagnosis for this admission?: Yes Plan: We will advance diet to clear liquids and then as tolerated. (2) D-dimer, elevated Is this a current diagnosis for this admission?: Yes Plan: Due to patient being a morbidly obese and concern for malignancy will order CTA of chest to evaluate for PE (3) Hypomagnesemia Is this a current diagnosis for this admission?: Yes Plan: We will give 2 g of magnesium. Would prefer to see patients magnesium level 2 (4) Fatty liver Is this a current diagnosis for this admission?: Yes Plan: Encourage dietary changes along with weight loss. (5) Hepatosplenomegaly Is this a current diagnosis for this admission?: Yes Plan: We will require further evaluation. Patient found to have left adnexal mass which is currently undergoing further evaluation. (6) Acute hyponatremia Is this a current diagnosis for this admission?: Yes Plan: Resolved. (7) Adnexal mass Is this a current diagnosis for this admission?: Yes Plan: Left adnexal mass concern for ovarian neoplasm: Patient is being followed by Dr. Guerra MANAGER PHOTO. Additional studies are pending. (8) Hyperbilirubinemia Is this a current diagnosis for this admission?: Yes Plan: Ultra sound of liver demonstrated fatty liver disease. Will check acute hepatitis panel. (9) Leukocytosis Is this a current diagnosis for this admission?: Yes Plan: Resolving (10) Morbid obesity Is this a current diagnosis for this admission?: Yes Plan: Encourage dietary changes to promote weight loss (11) Type 2 diabetes mellitus Qualifiers: Diabetes mellitus complication status: without complication Diabetes mellitus long term care administrator insulin use: with senior living use Qualified Code(s): E11.9 - Type 2 diabetes mellitus without complications; Z79.4 - [facility] (current) use of insulin; Z79.4 - intermediate manager (current) use of insulin; Z79.4 - [facility] ( current) use of insulin; Z79.4 - intermediate manager (current) use of insulin Is this a current diagnosis for this admission?: Yes Plan: We will continue current treatment plan (12) DVT prophylaxis Is this a current diagnosis for this admission?: Yes Plan: We will continue heparin - Time Time Spent with patient: 25-34 minutes Medications reviewed and adjusted accordingly: Yes Anticipated discharge: Home - Anticipate possible discharge home tomorrow if patient tolerates diet without having recurrence of worsening abdominal pain/ nausea vomiting - Inpatient Certification Medical Necessity: Risk of Diagnosis Which Will Require Inpatient Eval/Care/ Monitoring
[2017-06-29] MEDS: MAGNESIUM SULFATE/D5W 1 GM/100 ML RTUPB IV SCH ×2 (10:28→12:00)
--- NOTE | 2017-06-29 15:24 | RADIOLOGY REPORT (SQ) ---
EXAM DESCRIPTION: CTA CHEST COMPLETED DATE/TIME: 06/29/2017 2:49 pm REASON FOR STUDY: Elevated D-Dimer COMPARISON: CT chest 07/16/2016 TECHNIQUE: CT scan of the chest performed using helical scanning technique with dynamic intravenous contrast injection. Images reviewed with lung, soft tissue and bone windows. Reconstructed coronal and sagittal MPR images reviewed. Additional 3 dimensional post-processing performed to develop Maximal Intensity Projection images (MO P). All images stored on PACS. All CT scanners at this facility use dose modulation, iterative reconstruction, and/or weight based d osing when appropriate to reduce radiation dose to as low as reasonably achievable (ALARA). [facility]: Dose Right [facility]: CareDose [facility]: Dose Right [facility]: Teradose 4D [facility]: Jumio CONTRAST TYPE AND DOSE: contrast/concentration: Isovue 370.00 mg/ml; Total Contrast Delivered: 79.0 ml; Total Saline Delivered: 110.0 ml Contrast bolus optimized for the pulmonary arteries. Not diagnostic for the aorta. RENAL FUNCTION: Not available to the radiologist at this time. RADIATION DOSE: Up-to-date CT equipment and radiation dose reduction techniques were employed. CTDIv ol: 4.7 - 35.2 mGy. DLP: 735 mGy-cm. . LIMITATIONS: None. FINDINGS: LUNGS AND PLEURA: No masses, infiltrates, pneumothorax. No pleural effusions, calcificati ons. AORTA AND GREAT VESSELS: No aneurysm. Contrast bolus not optimized for the aorta. HEART: No pericardial effusion. No significant coronary artery calcifications. PULMONARY ARTERIES: No emboli visualized in the main pulmonary arteries or the segmental branches. HILAR AND MEDIASTINAL STRUCTURES: No identified masses or abnormal nodes. HARDWARE: None in the chest. UPPER ABDOMEN: No significant findings. Limited exam. THYROID AND OTHER SOFT TISSUES: No masses. No adenopathy. BONES: No acute or significant finding. 3D MIPS: Confirm above findings. OTHER: No other significant finding. IMPRESSION: NORMAL CTA OF THE CHEST. NO PULMONARY EMBOLI. COMMENT: Quality ID # [id number]: Final reports with documentation of one or more dose reduction techniques (e.g., Automated exposure control, adjustment of the mA and/or kV according to patient size, use of iterative reconstruction technique) TECHNICAL DOCUMENTATION: JOB ID: [id number]- All Rights Reserved
[2017-06-29] MEDS: AMITRIPTYLINE HCL 50 MG TABLET PO SCH (21:14)
[2017-06-29] MEDS: INSULIN DETEMIR 100 UNIT/ML 3 ML PEN SUBCUT SCH (21:14)
[2017-06-30] MEDS: INSULIN LISPRO 100 UNIT/ML 3 ML VIAL SUBCUT PRN ×3 (00:05→18:58)
[2017-06-30] MEDS: HEPARIN SOD (PORCINE) 5,000 UNIT/ML 1 ML SYRINGE SUBCUT SCH ×2 (06:12→14:05)
[2017-06-30 06:29] LABS: ALANINE AMINOTRANSFERASE 23 U/L (9-52); ALBUMIN 3.3 g/dL (3.5-5.0); ALKALINE PHOSPHATASE 86 U/L (38-126); ANION GAP 8 (5-19); ASPARTATE AMINO TRANSFERASE 15 U/L (14-36); BILIRUBIN,DIRECT 0.5 mg/dL (0.0-0.4); BILIRUBIN,TOTAL 1.5 mg/dL (0.2-1.3); BLOOD UREA NITROGEN 10 mg/dL (7-20); CARBON DIOXIDE 29 mmol/L (22-30); CHLORIDE 101 mmol/L (98-107); CREATININE RESULT 0.71 mg/dL (0.52-1.25); GLUCOSE 124 mg/dL (75-110); MAGNESIUM 1.7 mg/dL (1.6-2.3); POTASSIUM 3.8 mmol/L (3.6-5.0); SODIUM 137.8 mmol/L (137-145); TOTAL PROTEIN 5.8 g/dL (6.3-8.2)
[2017-06-30] MEDS: ASPIRIN 81 MG TABLET, ENT COATED PO SCH (10:16)
[2017-06-30] MEDS: TIMOLOL MALEATE 0.5% OPH SOLN 5 ML OU SCH (10:16)
[2017-06-30] MEDS: BUDESONIDE/FORMOTEROL 160-4.5 MCG 60 PUFF/6 GM MDI IH SCH (10:17)
--- NOTE | 2017-06-30 16:36 | PDOC DISCHARGE SUMMARY ---
General - Admit/Disc Date/PCP Admission Date/Primary Care Provider: 06/28/17 12:52 MALIKA LEW MD Discharge Date: 06/30/17 - Discharge Diagnosis (1) Pancreatitis Is this a current diagnosis for this admission?: Yes Summary: Acute pancreatitis: Patient was made n.p.o. as abdominal symptoms improved patient's diet was advanced. Patient has done well throughout hospitalization without any recurrence of abdomen pain. Patient's lipid profile does not explain why patient developed pancreatitis (2) D-dimer, elevated Is this a current diagnosis for this admission?: Yes Summary: She had a CTA done that demonstrated no evidence of PE (3) Hypomagnesemia Is this a current diagnosis for this admission?: Yes Summary: Patient received magnesium replacement during hospitalization. (4) Fatty liver Is this a current diagnosis for this admission?: Yes Summary: Encourage dietary changes and weight loss (5) Hepatosplenomegaly Is this a current diagnosis for this admission?: Yes Summary: Patient with large left adnexal mass patient will have follow-up with [facility] as outpatient (6) Acute hyponatremia Is this a current diagnosis for this admission?: Yes Summary: Mild hyponatremia most likely secondary to diuretic: Patient was discontinued off her blood pressure medication patient's blood pressures have been under control and therefore will not be discharged home on lisinopril or hydrochlorothiazide (7) Adnexal mass Is this a current diagnosis for this admission?: Yes Summary: Left adnexal 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: Patient will follow-up with [facility] as outpatient (8) Hyperbilirubinemia Is this a current diagnosis for this admission?: Yes Summary: Supportive (9) Leukocytosis Is this a current diagnosis for this admission?: Yes Summary: Resolved (10) Morbid obesity Is this a current diagnosis for this admission?: Yes Summary: encourage dietary changes (11) Type 2 diabetes mellitus Is this a current diagnosis for this admission?: Yes Summary: We will continue patient on insulin - Additional Information Resuscitation Status: Full Code Discharge Diet: Cardiac, Diabetic Discharge Activity: Activity As Tolerated Home Medications: Insulin Detemir [Levemir] 80 unit SQ QHS 09/09/11 Oxycodone HCl/Acetaminophen [Percocet 5-325 mg Tablet] 1 tab PO QHS 07/05/12 Insulin Lispro [Humalog Insulin (Lispro) 100 unit/mL] 20 unit SQ AC 04/28/13 Metformin HCl [Glumetza] 1,000 mg PO Q12 04/28/13 Amitriptyline HCl 2 tab PO QHS 06/27/17 Cholecalciferol (Vitd3)/Vit K2 [D3 + K2 Dots 1,000 Units Tab] 1 tab PO DAILY 10/13 Aspirin [Aspirin EC] 81 mg PO DAILY 06/28/17 Budesonide/Formoterol Fumarate [Symbicort 160-4.5 Mcg Inhaler] 2 puff IN Q12 11/13 Timolol Maleate [Timoptic 0.5% Oph Soln 5 ml] 1 drop OU Q12 06/28/17 Timolol Maleate [Timoptic 0.5% Oph Soln 5 ml] 1 drop OU Q12 bottle 06/30/17 History of Present Illness Patient complains of: Epigastric and back pain History of Present Illness: ARMOND GRIJALVA is a 56 year old female presented to the hospital with complaint of 2 weeks of epigastric pain radiating to back that was worse with food and with deep breathing. Hospital Course Hospital Course: Patient is 56-year-old female that was admitted to our facility with complaint of epigastric pain radiating to her back for [address] of abdomen and demonstrated evidence consistent with pancreatitis patient also had an ultrasound of abdomen that demonstrated absence of gallbladder. Patient was found to have hepatosplenomegaly and fatty liver disease. On the CT of abdomen and pelvis patient was found to have a large left adnexal mass. Patient states that she has been told that there was a mass in that area 5 [address] imaging done this visit demonstrates enlargement. Patient was seen by [facility] who has recommended outpatient follow-up. Patient was noted to have mild hyponatremia which was most likely related to patient's hydrochlorothiazide. Due to patient's low blood pressure during hospitalization patient's blood pressure medications were not resumed. Patient was instructed to follow-up PCP in 1 week and [facility] in 1 week. Physical Exam Vital Signs: Temp Pulse Resp BP Pulse Ox 97.8 F 78 20 124/77 95 06/30/17 15:11 06/30/17 15:11 06/30/17 15:11 06/30/17 15:11 06/30/17 15:11 Intake & Output 06/29/17 06/30/17 07/01/17 06:59 06:59 06:59 Intake Total 800 1600 Output Total 1400 750 Balance -600 850 Weight 161 kg 164.3 kg General appearance: PRESENT: no acute distress, well-developed, well-nourished, other - Morbidly overweight Head exam: PRESENT: atraumatic, normocephalic Eye exam: PRESENT: conjunctiva pink, EOMI, PERRLA. ABSENT: scleral icterus Ear exam: PRESENT: normal external ear exam Mouth exam: PRESENT: moist, tongue midline Neck exam: ABSENT: carotid bruit, JVD, lymphadenopathy, thyromegaly Respiratory exam: PRESENT: clear to auscultation skyler. ABSENT: rales, rhonchi, wheezes Cardiovascular exam: PRESENT: RRR. ABSENT: diastolic murmur, rubs, systolic murmur Pulses: PRESENT: normal dorsalis pedis pul Vascular exam: PRESENT: normal capillary refill GI/Abdominal exam: PRESENT: normal bowel sounds, soft. ABSENT: distended, guarding, mass, organolmegaly, rebound, tenderness Rectal exam: PRESENT: deferred Extremities exam: PRESENT: full ROM. ABSENT: calf tenderness, clubbing, pedal edema Neurological exam: PRESENT: alert, awake, oriented to person, oriented to place , oriented to time, oriented to situation, CN II-XII grossly intact. ABSENT: motor sensory deficit Psychiatric exam: PRESENT: appropriate affect, normal mood. ABSENT: homicidal ideation, suicidal ideation Skin exam: PRESENT: dry, intact, warm. ABSENT: cyanosis, rash Results Laboratory Results: 06/29/17 05:45 06/30/17 05:01 06/30/17 05:01 Sodium 137.8 Potassium 3.8 Chloride 101 Carbon Dioxide 29 Anion Gap 8 BUN 10 Creatinine 0.71 Est GFR ( Amer) > 60 Est GFR (Non-Af Amer) > 60 Glucose 124 H Calcium 9.0 Magnesium 1.7 Total Bilirubin 1.5 H AST 15 ALT 23 Alkaline Phosphatase 86 Total Protein 5.8 L Albumin 3.3 L Impressions: Chest X-Ray 06/27/17 17:20 IMPRESSION: No acute findings. Abdomen Ultrasound 06/27/17 19:26 IMPRESSION: Fatty liver. Otherwise Study limited due to acoustical interference from fat or from air in the bowel. Abdomen/Pelvis CT 06/27/17 22:46 IMPRESSION: Acute pancreatitis. Hepatosplenomegaly. Fatty infiltration of the liver. Periportal adenopathy. Interval increase in the left adnexal mass, worrisome for ovarian neoplasm. MRI pelvis may help in further characterization. [facility] consultation recommended. Pelvis Ultrasound 06/28/17 00:00 IMPRESSION: Limited study. No fibroids identified. Chest/Abdomen CTA 06/29/17 00:00 IMPRESSION: NORMAL CTA OF THE CHEST. NO PULMONARY EMBOLI.
[2017-06-30 16:44] VITALS: BP 133/79
[2017-06-30 18:34] LABS: CARCINOEMBRYONIC ANTIGEN 3.6 ng/mL (<3.0)
== END 2017-06-30 19:10 | disposition home or self-care (01) | DRG 439 ==
LOC: ER 16:42 → EH 06-28 00:37 → 2N 06-28 02:50 → OBSVTOIN 06-28 12:52
PROVIDERS: ADMIT Internal Medicine; ATTEND Internal Medicine
PROC: 3E0F73Z Introduction of Anti-inflammatory into Respiratory Tract, Via Natural or Artificial Opening (ICD-10-PCS; principal; 2017-06-28)
PROC: 3E0234Z Introduction of Serum, Toxoid and Vaccine into Muscle, Percutaneous Approach (ICD-10-PCS; 2017-06-30)
DX: K85.90 Acute pancreatitis without necrosis or infection, unspecified (principal); E87.1 Hypo-osmolality and hyponatremia; Z68.44 Body mass index [BMI] 60.0-69.9, adult; J96.11 Chronic respiratory failure with hypoxia; E83.42 Hypomagnesemia; K76.0 Fatty (change of) liver, not elsewhere classified; T50.2X5A Adverse effect of carbonic-anhydrase inhibitors, benzothiadiazides and other diuretics, initial encounter; R16.2 Hepatomegaly with splenomegaly, not elsewhere classified; R79.1 Abnormal coagulation profile; R19.09 Other intra-abdominal and pelvic swelling, mass and lump; E66.01 Morbid (severe) obesity due to excess calories; I10 Essential (primary) hypertension; J44.9 Chronic obstructive pulmonary disease, unspecified; Z77.22 Contact with and (suspected) exposure to environmental tobacco smoke (acute) (chronic); E11.9 Type 2 diabetes mellitus without complications; M19.90 Unspecified osteoarthritis, unspecified site; K21.9 Gastro-esophageal reflux disease without esophagitis; Z79.4 Long term (current) use of insulin; Z82.49 Family history of ischemic heart disease and other diseases of the circulatory system; Z71.3 Dietary counseling and surveillance; Z23 Encounter for immunization
CPT/HCPCS: 36415; 71020; 71275; 74177; 76705; 76857; 80053; 80074; 81001; 82378; 82465; 82550; 82553; 82962; 83615; 83690; 83735; 84478; 84484; 85025; 85379; 86304; 90686; 93005; 93010; 99285; G0378; J1644; J1815; J3475; J3490; J7030

== ENCOUNTER → 2017-11-04 | Outpatient (CLI) | payer OTHER ==
--- NOTE | 2017-11-04 13:37 | WOMENS IMAGING REPORT ---
EXAM DESCRIPTION: BILAT SCREENING MAMMO W/CAD COMPLETED DATE/TIME: 11/04/2017 1:12 pm REASON FOR STUDY: SCREENING MAMMO Z12.31 ENCNTR SCREEN MAMMOGRAM FOR MALIGNANT NEOPLASM OF CAITLIN COMPARISON: Multiple since 2010 TECHNIQUE: Standard craniocaudal and mediolateral oblique views of each breast recorded using digita l acquisition. LIMITATIONS: None. FINDINGS: Findings present which are benign by mammographic criteria. No suspicious masses, calcifi cations or architectural distortion. Pertinent benign findings: Stable bilateral benign-appearing intramammary lymph nodes. Read with the assistance of CAD. .[facility] - R2 Cenova Version 1.3 .[facility] Imaging - R2 Cenova Version 1.3 .[facility] Imaging - R2 Cenova Version 2.4 .[facility] [place] Cenova Version 2.4 .[facility] - R2 [employer]ental [employer] Version 9.2 Benign mammographic findings may include one or more of the following: Smooth masses, popcorn/rim/co arse calcifications, asymmetries, post-procedure changes, and lesions with long-standing stability. IMPRESSION: BENIGN MAMMOGRAPHIC FINDINGS. BIRADS 2 BREAST DENSITY: a. The breasts are almost entirely fatty. BIRAD: 2 BENIGN FINDING(S) RECOMMENDATION: ROUTINE SCREENING Please continue yearly screening in October 2018. Consider bilateral screening tomosynthesis COMMENT: The patient has been notified of the results by letter per MQSA requirements. Additional no tification policies are in place for contacting patient with suspicious or incomplete findings. Quality ID #[id number]: The [employer] recommends an annual screening mammogram for women aged 40 years or over. This facility utilizes a reminder system to ensure that all patients receive reminder letters, and/or direct phone calls for appointments. This includes reminders for routine scr eening mammograms, diagnostic mammograms, or other Breast Imaging Interventions when appropriate. Th is patient will be placed in the appropriate reminder system. The [employer] (ACR) has developed recommendations for screening MRI of the breast s in certain patient populations, to be used in conjunction with mammography. Breast MRI surveillanc e may be appropriate for women with more than 20% lifetime risk of developing breast cancer as deter mined by genetic testing, significant family history of the disease, or history of mantle radiation f or Hodgkins Disease. ACR Practice Guidelines 2008. TECHNICAL DOCUMENTATION: FINDING NUMBER: (1) ASSESSMENT: (1) JOB ID: [id number] [employer]- All Rights Reserved
== END ==
LOC: WI 09:00
PROVIDERS: ATTEND Family Medicine
DX: Z12.31 Encounter for screening mammogram for malignant neoplasm of breast (principal)
CPT/HCPCS: 77067

== ENCOUNTER → 2018-01-17 | Outpatient (CLI) | payer OTHER ==
--- NOTE | 2018-01-17 20:14 | XCELERA REPORT ---
[address] [address] Transthoracic Echocardiogram Report Name: ARMOND GRIJALVA Age: 57 yrs Gender: Female : 1960 Patient Status: Outpatient Patient Location: [facility] Study Date: 01/17/2018 02:13 PM Height: 65 in Weight: 370 lb BSA: 2.6 m2 Reason For Study: DYSPNEA Ordering Physician: REZA SHEN Performed By: Von Duggan Interpretation Summary Technically difficult and suboptimal images d/t pt 370# and only 5'5" Few observations are; LVEF probably normal and LV not enlarged, but stage I LV diastolic dysfunction, and incomplete LV segmental analysis. There appears to be septal hypokinesis. RH is poorly seen and TR not available to interrogate to deduce RVSP to r/o in or out pulm hypertension. No gross AV abn. MV appears normal and no LA enlargemnt. MMode/2D Measurements & Calculations RVDd: 3.9 cm LVIDd: 4.9 cm FS: 27.5 % Ao root diam: 3.1 cm IVSd: 0.82 cm LVIDs: 3.5 cm EDV(Teich): 112.7 ml LVPWd: 0.89 cm ESV(Teich): 52.6 ml Ao root area: 7.5 cm2 EF(Teich): 53.3 % LA dimension: 3.2 cm Doppler Measurements & Calculations MV E max taina: MV P1/2t max taina: Ao V2 max: LV V1 max P.5 cm/sec 63.2 cm/sec 168.3 cm/sec 2.7 mmHg MV A max taina: MV P1/2t: 78.8 msec Ao max PG: LV V1 max: 68.6 cm/sec 11.3 mmHg 81.4 cm/sec MV E/A: 0.91 MVA(P1/2t): 2.8 cm2 MV dec slope: 235.1 cm/sec2 PA V2 max: 116.8 cm/sec PA max P.5 mmHg Left Ventricle The left ventricle is normal in size, thickness and function. There is normal left ventricular wall thickness. The left ventricular ejection fraction is normal. Doppler measurements suggest impaired left ventricular relaxation, which is associated with grade I/IV or mild diastolic dysfunction. Regional wall motion abnormalities cannot be excluded due to limited visualization. The left ventricular apex is not well visualized. Right Ventricle The right ventricle is not well visualized secondary to technical limitations. Atria The right atrium is normal. The left atrial size is normal. Mitral Valve There is mild mitral annular calcification. The mitral valve leaflets appear normal. There is no evidence of stenosis, fluttering, or prolapse. There is no evidence of mitral valve prolapse. There is no mitral valve stenosis. There is no mitral regurgitation noted. Aortic Valve The aortic valve is not well visualized secondary to technical limitations. The aortic valve opens well. Cannot exclude aortic valvular vegetation. There is no aortic valve stenosis. No aortic regurgitation is present. Tricuspid Valve The tricuspid valve is not well visualized secondary to technical limitations. Pulmonic Valve The pulmonic valve is not well visualized. There is no pulmonic valvular regurgitation. Great Vessels The aortic root is normal size. The inferior vena cava was not well visualized. Effusions There is no pericardial effusion. I WMSI = 1.38 % Normal = 62 Segments Size X - Cannot 1 - Normal 2 - 3 - Akinetic4 - 1-2 small Interpret Hypokinetic Dyskinetic 3-5 moderate 5 - 6-14 large Aneurysmal 15-16 diffuse : REZA SHEN > Howard Saleem
== END ==
LOC: SP 13:41
PROVIDERS: ATTEND Physician Assistant
DX: R06.00 Dyspnea, unspecified (principal)
CPT/HCPCS: 93306

== ENCOUNTER → 2018-11-21 | Outpatient (CLI) | payer MEDICAID ==
--- NOTE | 2018-11-21 16:27 | WOMENS IMAGING REPORT ---
EXAM DESCRIPTION: BILAT SCREENING MAMMO W/CAD COMPLETED DATE/TIME: 11/21/2018 4:07 pm REASON FOR STUDY: ROUTINE BILATERAL SCREENING Z12.31 ENCNTR SCREEN MAMMOGRAM FOR MALIGNANT NEOPLASM OF CAITLIN COMPARISON: [id number] TECHNIQUE: Standard craniocaudal and mediolateral oblique views of each breast recorded using digita l acquisition. LIMITATIONS: None. FINDINGS: No masses, calcifications or architectural distortion. No areas of suspicion. Read with the assistance of CAD. .[facility] - R2 Cenova Version 1.3 .[facility] Imaging - R2 Cenova Version 2.1 .[facility] Imaging - R2 Cenova Version 2.4 .[facility] [place] - R2 Cenova Version 2.4 .[facility] - R2 Manager [employer] Version 9.2 IMPRESSION: NORMAL MAMMOGRAM. BIRADS 1. BREAST DENSITY: a. The breasts are almost entirely fatty. BIRAD: 1 NEGATIVE RECOMMENDATION: ROUTINE SCREENING COMMENT: The patient has been notified of the results by letter per SA requirements. Additional no tification policies are in place for contacting patient with suspicious or incomplete findings. Quality ID #[id number]: The [employer] recommends an annual screening mammogram for women aged 40 years or over. This facility utilizes a reminder system to ensure that all patients receive reminder letters, and/or direct phone calls for appointments. This includes reminders for routine scr eening mammograms, diagnostic mammograms, or other Breast Imaging Interventions when appropriate. Th is patient will be placed in the appropriate reminder system. The [employer] (ACR) has developed recommendations for screening MRI of the breast s in certain patient populations, to be used in conjunction with mammography. Breast MRI surveillanc e may be appropriate for women with more than 20% lifetime risk of developing breast cancer as deter mined by genetic testing, significant family history of the disease, or history of mantle radiation f or Hodgkins Disease. ACR Practice Guidelines 2008. TECHNICAL DOCUMENTATION: FINDING NUMBER: (1) ASSESSMENT: (1) JOB ID: [id number] [employer]- All Rights Reserved Reading location - IP/workstation name: [email or web address]
== END ==
LOC: WI 15:19
PROVIDERS: ATTEND Family Medicine
DX: Z12.31 Encounter for screening mammogram for malignant neoplasm of breast (principal)
CPT/HCPCS: 77067

== ENCOUNTER → 2019-12-04 | Outpatient (CLI) | payer MEDICARE, MEDICAID | LOC: SP 14:30 | PROVIDERS: ATTEND Registered Nurse | DX: I27.20 Pulmonary hypertension, unspecified (principal) | CPT/HCPCS: 93306 ==

== ENCOUNTER → 2020-06-20 | Outpatient (CLI) | payer MEDICARE, MEDICAID ==
--- NOTE | 2020-06-20 15:53 | RADIOLOGY REPORT (SQ) ---
EXAM DESCRIPTION: CT CHEST WITHOUT IMAGES COMPLETED DATE/TIME: 06/20/2020 3:28 pm REASON FOR STUDY: (J44.9)CHRONIC OBSTRUCTIVE PULMONARY DISEASE, UNSPECIFIED J44.9 CHRONIC OBSTRUCTI VE PULMONARY DISEASE, UNSPECIFIED COMPARISON: 06/29/2017 TECHNIQUE: CT scan performed of the chest without intravenous contrast. Images reviewed with lung, soft tissue and bone windows. Reconstructed coronal and sagittal MPR images reviewed. All images st ored on PACS. All CT scanners at this facility use dose modulation, iterative reconstruction, and/or weight based d osing when appropriate to reduce radiation dose to as low as reasonably achievable (ALARA). [facility]: Dose Right [facility]: CareDose [facility]: Dose Right [facility]: Teradose 4D [facility]: Incentivyze RADIATION DOSE: CT Rad equipment meets quality standard of care and radiation dose reduction techniq ues were employed. CTDIvol: 24.2 mGy. DLP: 1064 mGy-cm. mGy. LIMITATIONS: No technical limitations. FINDINGS: LUNGS AND PLEURA: No masses, infiltrates, or pneumothorax. No pleural effusions or pleura l calcifications. HILAR AND MEDIASTINAL STRUCTURES: No identified masses or abnormal nodes. No obvious aneurysm. HEART AND VASCULAR STRUCTURES: No aneurysm. No pericardial effusion. UPPER ABDOMEN: No significant findings. Limited exam. THYROID AND OTHER SOFT TISSUES: Stable small substernal left thyroid nodule. BONES: No significant finding. HARDWARE: None in the chest. OTHER: No other significant findings. IMPRESSION: NO SIGNIFICANT FINDING ON NON-CONTRASTED CHEST CT. TECHNICAL DOCUMENTATION: JOB ID: [id number] Quality ID # [id number]: Final reports with documentation of one or more dose reduction techniques (e.g., Au tomated exposure control, adjustment of the mA and/or kV according to patient size, use of iterative reconstruction technique) 2010 [email or web address]- All Rights Reserved Reading location - IP/workstation name: [email or web address]
== END ==
LOC: RAD 15:05
PROVIDERS: ATTEND Registered Nurse
DX: J44.9 Chronic obstructive pulmonary disease, unspecified (principal)
CPT/HCPCS: 71250

== ENCOUNTER 2020-08-02 10:29 | Day surgery (SDC) | payer MEDICARE, MEDICAID ==
[2020-08-02] MEDS ORDERED: PROPOFOL INJ 200 MG/20 ML VIAL IV ONE (11:00)
[2020-08-02] MEDS ORDERED: DIPHENHYDRAMINE HCL 50 MG/ML VIAL IV PRN (11:20)
[2020-08-02] MEDS ORDERED: ONDANSETRON HCL INJ/PF 4 MG/2 ML SDV IV PRN (11:20)
--- NOTE | 2020-08-02 11:34 | Operative Report ---
Operative Report DATE OF SURGERY: 08/02/20 Operative Report: The risks benefits and alternatives of the procedure explained to the patient in detail and informed consent is obtained.A GIF Olympus video scope was inserted into the patient's mouth and hypopharynx, the esophagus is identified intubated and insufflated, the scope was then advanced through the esophagus stomach and duodenum, retroflexion maneuver is done the esophagus stomach and first and second portions of the duodenum examined PREOPERATIVE DIAGNOSIS: Dysphagia POSTOPERATIVE DIAGNOSIS: Esophagitis status post biopsy. Gastritis status post biopsy OPERATION: EGD with biopsy SURGEON: CHRISTEL ODONNELL ANESTHESIA: LMAC TISSUE REMOVED OR ALTERED: As noted above. COMPLICATIONS: None. ESTIMATED BLOOD LOSS: None. INTRAOPERATIVE FINDINGS: As noted above. PROCEDURE: Patient tolerated the procedure well. No immediate postprocedure complications are noted. Patient is discharged in good condition. Discharge date 08/02/2020. Discharge diet: Regular. Discharge activity: Regular. 2 to 3-week follow-up to discuss findings. Patient is instructed call the office or proceed to the emergency room should there be any further problems questions. Wait on the pathology.
[2020-08-02 16:43] VITALS: BP 119/64
== END 2020-08-02 12:10 | disposition home or self-care (01) ==
LOC: OROUT 10:29
PROVIDERS: ATTEND Internal Medicine Gastroenterology
DX: K31.9 Disease of stomach and duodenum, unspecified (principal); K29.70 Gastritis, unspecified, without bleeding; K20.90 Esophagitis, unspecified without bleeding; Z03.818 Encounter for observation for suspected exposure to other biological agents ruled out; Z80.0 Family history of malignant neoplasm of digestive organs; E66.01 Morbid (severe) obesity due to excess calories; Z90.49 Acquired absence of other specified parts of digestive tract; J44.9 Chronic obstructive pulmonary disease, unspecified; Z79.899 Other long term (current) drug therapy; Z79.4 Long term (current) use of insulin; I10 Essential (primary) hypertension; E11.42 Type 2 diabetes mellitus with diabetic polyneuropathy; Z86.010 Personal history of colon polyps; Z68.29 Body mass index [BMI] 29.0-29.9, adult; I27.20 Pulmonary hypertension, unspecified; Z79.82 Long term (current) use of aspirin
CPT/HCPCS: 43239; 82962; 88342 ×2; 88305 ×2; 00731; U0003; J2704; C9803; 731; 87635